=== PATIENT | male | born 1990 | race Caucasian/White ===

== ENCOUNTER 2022-02-14 20:12 | Inpatient (IN) | payer OTHER ==
[2022-02-14 20:17] VITALS: BMI 29.0
[2022-02-14] MEDS ORDERED: ASPIRIN 81 MG CHEWABLE TABLETS PO ONE ×2 (20:37→22:28)
[2022-02-14] MEDS ORDERED: FAMOTIDINE 20 MG/50 ML IVPB 20 MG/50 ML MG IVPB ONE ×2 (21:02→21:26)
[2022-02-14] MEDS ORDERED: SODIUM CHLORIDE 0.9% 500 ML INFUS.BAG IV ONE (21:02)
[2022-02-14] MEDS ORDERED: ASPIRIN 81 MG CHEWABLE TABLETS ONE ×2 (21:26→22:34)
[2022-02-14 21:42] LABS: BASO % 0.6 % (0-2.0); HEMATOCRIT 43.6 % (35.4-49); HEMOGLOBIN 14.2 GM/dL (11.7-16.9); LYMPH % 10.2 % (8-40); MCH 28.5 pg (25.7-33.7); MCHC 32.5 g/dl (32.0-35.9); MEAN CELL VOLUME 87.6 fl (80-96); MEAN PLT VOLUME 7.9 fl (7.5-11.1); MONO % 4.3 % (3.8-10.2); NEUT % 84.9 % (42.8-82.8); PLATELET COUNT 365 10^3/uL (134-434); RBC 4.97 M/mm3 (4.00-5.60); WHITE BLOOD COUNT 13.1 K/mm3 (4.0-10.0)
[2022-02-14 21:50] LABS: INR 1.06 (0.83-1.09); PROTHROMBIN TIME (PATIENT) 12.2 SEC (9.7-13.0)
[2022-02-14 21:53] LABS: CALCIUM 9.4 mg/dL (8.5-10.1)
[2022-02-14 21:54] LABS: ALBUMIN 4.5 g/dl (3.4-5.0); BLOOD UREA NITROGEN 13.2 mg/dL (7-18); MAGNESIUM 2.1 mg/dL (1.8-2.4)
[2022-02-14 21:57] LABS: CREATININE 1.1 mg/dL (0.55-1.3)
[2022-02-14 21:59] LABS: BILIRUBIN,TOTAL 0.2 mg/dL (0.2-1); TOT PROT 8.4 g/dl (6.4-8.2)
[2022-02-14] MEDS ORDERED: MAG HYDROX/AL HYDROX/SIMETH 30 ML UNIT-DOSE CUP PO ONE (22:21)
[2022-02-14] MEDS ORDERED: METOPROLOL TARTRATE 5 MG/5 ML VIAL IVPUSH ONE (22:27)
[2022-02-14] MEDS ORDERED: METOPROLOL TARTRATE 5 MG/5 ML VIAL ONE (22:34)
[2022-02-14] MEDS ORDERED: MAG HYDROX/AL HYDROX/SIMETH 30 ML UNIT-DOSE CUP ONE (22:35)
[2022-02-14 23:03] LABS: OPIATES, URI NEGATIVE (NEGATIVE); PHENCYCLIDINE,URINE NEGATIVE (NEGATIVE); URINE AMPHETAMINES NEGATIVE (NEGATIVE); URINE BARBITURATES NEGATIVE (NEGATIVE)
[2022-02-14 23:04] LABS: METHADONE, UR NEGATIVE (NEGATIVE); URINE BENZODIAZEPINES NEGATIVE (NEGATIVE)
[2022-02-14 23:14] LABS: COCAINE, UR POSITIVE (NEGATIVE)
[2022-02-14] MEDS ORDERED: HEPARIN NA (PORCINE) 5,000 UNITS/ML 1ML VIAL IVPUSH ONE ×2 (23:38→23:54)
[2022-02-14] MEDS ORDERED: HEPARIN - 25,000 UNIT in SODIUM CHLORIDE 495 ML IV SCH (23:45)
[2022-02-14] MEDS ORDERED: HEPARIN NA (PORCINE) 5,000 UNITS/ML 1ML VIAL IVPUSH PRN ×2 (23:54)
[2022-02-15] MEDS ORDERED: HEPARIN NA (PORCINE) 5,000 UNITS/ML 1ML VIAL ONE
[2022-02-15] MEDS ORDERED: HEPARIN INFUSION - 25,000 UNITS/500 ML INFUS.BAG IVPB ONE
[2022-02-15] MEDS ORDERED: NITROGLYCERIN 2% OINTMENT - 1GM PACKET TD ONE ×3 (07:29→18:13)
[2022-02-15] MEDS: NITROGLYCERIN 2% OINTMENT - 1GM PACKET TD SCH ×3 (07:38→18:52)
[2022-02-15 07:39] LABS: CHLORIDE 104 mmol/L (98-107); SODIUM 139 mmol/L (136-145)
[2022-02-15 07:41] LABS: ALBUMIN 3.8 g/dl (3.4-5.0); ANION GAP 7 MMOL/L (8-16); BLOOD UREA NITROGEN 11.4 mg/dL (7-18); CALCIUM 8.8 mg/dL (8.5-10.1); CO2 28 mmol/L (21-32); GLUCOSE,RANDOM 109 mg/dL (74-106)
[2022-02-15 07:44] LABS: SGOT/AST 27 U/L (15-37); SGPT/ALT 40 U/L (13-61)
[2022-02-15 07:45] LABS: CREATININE 0.8 mg/dL (0.55-1.3); PHOSPHOROUS 4.1 mg/dL (2.5-4.9)
[2022-02-15 07:46] LABS: BILIRUBIN,TOTAL 0.3 mg/dL (0.2-1); TOT PROT 7.1 g/dl (6.4-8.2)
[2022-02-15 07:47] LABS: ALK PHOS 68 U/L (45-117)
[2022-02-15] MEDS ORDERED: ASPIRIN 81 MG CHEWABLE TABLETS ONE (09:18)
[2022-02-15] MEDS: ASPIRIN 81 MG CHEWABLE TABLETS PO SCH (09:35)
[2022-02-15] MEDS ORDERED: ATORVASTATIN CA 80 MG TABLET (FP) PO SCH (22:00)
[2022-02-16 08:10] LABS: HEMATOCRIT 40.8 % (35.4-49); HEMOGLOBIN 13.5 GM/dL (11.7-16.9); MCH 29.1 pg (25.7-33.7); MCHC 33.1 g/dl (32.0-35.9); MEAN CELL VOLUME 87.8 fl (80-96); MEAN PLT VOLUME 7.9 fl (7.5-11.1); PLATELET COUNT 289 10^3/uL (134-434); RBC 4.64 M/mm3 (4.00-5.60); RDW 13.1 % (11.9-15.9)
[2022-02-16 08:33] LABS: CHOLESTEROL 201 mg/dL (50-200)
[2022-02-16 08:34] LABS: LDL CHOLESTEROL (ONLY SJRH) 131 mg/dL (5-100); TRIGLYCERIDES 116 mg/dL (0-150)
[2022-02-16 08:36] LABS: HDL CHOLESTEROL 52 mg/dL (40-60)
[2022-02-16 09:12] VITALS: RESP 20
[2022-02-16] MEDS: ASPIRIN 81 MG CHEWABLE TABLETS PO SCH (11:10)
[2022-02-16] MEDS ORDERED: ASPIRIN 81 MG CHEWABLE TABLETS ONE (11:10)
[2022-02-16 12:17] VITALS: BP 121/70; PULSE 71; TEMP 98.3
[2022-02-16] MEDS ORDERED: ATORVASTATIN CA 80 MG TABLET (FP) PO SCH (12:55)
== END 2022-02-16 14:10 | disposition home or self-care (01) | DRG 198 ==
LOC: JER 20:12 → JERBED 02-15
PROVIDERS: ADMIT Internal Medicine; ATTEND Nurse Practitioner Family
DX: I20.1 Angina pectoris with documented spasm (principal); F14.99 Cocaine use, unspecified with unspecified cocaine-induced disorder; F17.210 Nicotine dependence, cigarettes, uncomplicated; R00.0 Tachycardia, unspecified; I45.10 Unspecified right bundle-branch block; R73.03 Prediabetes; R77.8 Other specified abnormalities of plasma proteins; R94.31 Abnormal electrocardiogram [ECG] [EKG]; F10.10 Alcohol abuse, uncomplicated
CPT/HCPCS: 0241U-QW; 36415; 71045-TC-FY; 80053; 80061; 80307; 83735; 84100; 84484; 85025; 85027; 85379; 85610; 85730; 93005; 93010; 93306-TC; 93351; 99285-25; J1644